=== PATIENT | female | born 1965 | race Caucasian/White ===

== ENCOUNTER 2024-09-12 10:27 | Outpatient (CLI) | payer OTHER | END 2024-09-12 23:59 | disposition home or self-care (01) | LOC: CARD DIAG 10:27 | PROVIDERS: ATTEND Internal Medicine Interventional Cardiology | DX: I34.81 Nonrheumatic mitral (valve) annulus calcification (principal); I48.91 Unspecified atrial fibrillation; Z86.73 Personal history of transient ischemic attack (TIA), and cerebral infarction without residual deficits | CPT/HCPCS: 93306 ==